=== PATIENT | male | born 1990 | race Two or more races ===

== ENCOUNTER 2019-06-25 12:26 | Emergency (ER) | payer MEDICAID ==
[~2019-06-25] VITALS: Ht 172.7 cm; Wt 101.2 kg
[2019-06-25 12:31] VITALS: BP 138/96
[2019-06-25] MEDS ORDERED: HYDROcodone/APAP 5/325 TABLET ONE (12:52)
[2019-06-25] MEDS ORDERED: ONDANSETRON ODT 4 MG ONE (12:53)
[2019-06-25 12:58] LABS: BASOPHILS # (AUTO) 0.06 x10^3/uL (0-0.1); BASOPHILS % (AUTO) 1 % (0-1); EOSINOPHILS # (AUTO) 0.24 x10^3/uL (0-0.4); EOSINOPHILS % (AUTO) 3 % (1-7); LYMPHOCYTES # (AUTO) 2.08 x10^3/uL (1-3.4); LYMPHOCYTES % (AUTO) 24 % (22-44); MD NO; MEAN CORPUSCULAR HEMOGLOBIN 30.5 pg (27.5-34.5); MEAN CORPUSCULAR HGB CONC 33.9 g/dL (33.2-36.2); MEAN CORPUSCULAR VOLUME 89.9 fL (81-97); MEAN PLATELET VOLUME 9.2 fL (7.4-10.4); MONOCYTES # (AUTO) 0.77 x10^3/uL (0.2-0.8); MONOCYTES % (AUTO) 9 % (2-9); NEUTROPHILS # (AUTO) 5.58 x10^3/uL (1.8-6.8); NEUTROPHILS % (AUTO) 64 % (42-75); PLATELET COUNT 201 x10^3/uL (130-400); RED BLOOD COUNT 5.34 x10^6/uL (4.38-5.82); RED CELL DISTRIBUTION WIDTH 13.3 % (9.4-14.8)
[2019-06-25] MEDS ORDERED: HYDROcodone/APAP 5/325 TABLET PO ONE (13:00)
[2019-06-25] MEDS ORDERED: ONDANSETRON ODT 8 MG PO ONE (13:00)
== END 2019-06-25 13:34 | disposition home or self-care (01) ==
LOC: ED 13:00
DX: M13.171 Monoarthritis, not elsewhere classified, right ankle and foot (principal); F17.200 Nicotine dependence, unspecified, uncomplicated
CPT/HCPCS: 36415; 73660; 84550; 85025; 99284; Q0162